=== PATIENT | female | born 1975 | race Two or more races ===

== ENCOUNTER → 2018-02-07 | Outpatient (CLI) | payer OTHER ==
--- NOTE | 2018-02-07 12:56 | KCIC ---
MR of the left shoulder Indication: Left shoulder contusion, fell on January 28. Pain and limited range of motion.. Comparison: None are available. Technique: Standard multiplanar sequences are obtained. Findings: Artifact: No significant image degradation. Acromioclavicular joint:Intact. Rotator cuff: * Supraspinatus-infraspinatus tendon: Mildly thickened and hyperintense compatible with tendinosis. No measurable fluid gap or rupture. * Subscapularis tendon: Mild tendinosis, no high-grade tear. * Muscle bulk: Within normal limits * Subacromial subdeltoid bursa: No significant effusion. Fluid: No significant glenohumeral effusion. Glenohumeral cartilage: No acute defect or advanced DJD. Labrum: No evidence of labral detachment. Biceps tendon: Intact Bones: No lesion or acute fracture. Soft tissue: No acute findings.. Impression: 1. Mild rotator cuff tendinosis, no evidence of tear. 2. No acute findings. Electronically signed by: Bill Gil MD (02/07/2018 12:52 PM) [id number]
== END | disposition home or self-care (01) ==
LOC: KCIC MRI 08:49
DX: S40.012A Contusion of left shoulder, initial encounter (principal); M75.102 Unspecified rotator cuff tear or rupture of left shoulder, not specified as traumatic; X58.XXXA Exposure to other specified factors, initial encounter; Y93.89 Activity, other specified; Y92.89 Other specified places as the place of occurrence of the external cause; Y99.2 Volunteer activity
CPT/HCPCS: 73221